=== PATIENT | female | born 1975 | race Caucasian/White ===

== ENCOUNTER 2020-03-21 06:03 | Day surgery (SDC) | payer OTHER ==
[2020-03-17 13:49] VITALS: BMI 27.6
--- NOTE | 2020-03-21 07:05 | HP ---
History & Physical Update - History History: No Change - Physical Physical: No Change - Assessment Assessment: No Change - Plan Plan: No Change
[2020-03-21] MEDS ORDERED: LIDOCAINE HCL 1%, 10 MG/ML (20ML VIAL) ONE (07:09)
[2020-03-21] MEDS ORDERED: PROPOFOL 20 ML ONE ×3 (07:19→08:02)
[2020-03-21] MEDS ORDERED: EPHEDRINE SULFATE/0.9% NACL/PF 50 MG/10 ML SYRINGE NR ONE (07:20)
[2020-03-21] MEDS ORDERED: SUCCINYLCHOLINE CHLORIDE 200 MG/10 ML SYRINGE ONE (07:20)
[2020-03-21] MEDS ORDERED: MIDAZOLAM HCL 2 MG/2 ML SINGLE DOSE VIAL ONE (07:21)
[2020-03-21] MEDS ORDERED: LIDOCAINE HCL 1%, 10 MG/ML (20ML VIAL) NR ONE (07:49)
[2020-03-21] MEDS ORDERED: ACETAMINOPHEN 325 MG TABLET (FP) PO PRN (08:19)
[2020-03-21] MEDS ORDERED: IBUPROFEN 400 MG TABLET (FP) PO PRN (08:19)
[2020-03-21 08:43] VITALS: TEMP 98.2
--- NOTE | 2020-03-21 09:05 | OPR ---
Date of Procedure: 03/21/2020 Procedure: Left elbow percutaneous tenotomy of common extensor tendon using ultrasound guidance ([id number]). Preoperative Diagnoses: Left elbow recalcitrant lateral epicondylitis. Postoperative Diagnoses: Left elbow recalcitrant lateral epicondylitis. Surgeon: Jose Antonio Allen DO Assistants: Geovani Abarca DO Anesthesia: Local anesthesia with sedation Estimated Blood Loss: Minimal Drains: None Total IV Fluids: Per anesthesia record Specimens: None Implants: None Complications: None Disposition: PACU Condition: Hemodynamically stable Indications: Yara Iyer presented to us with chronic elbow pain that failed conservative measures. Her symptoms, signs, and imaging were consistent with the above noted diagnoses. The patient failed over 6 months of conservative treatment, consisting of anti-inflammatory medication, physical therapy, bracing, and corticosteroid injection. An MRI of the elbow was used to confirm ECRB/common extensor tendon pathology. She ultimately elected to proceed with surgical intervention after discussion of the risks, benefits, alternatives. We discussed risks including but not limited to, bleeding, pain, infection, scarring, damage to neurovascular structures, blood clots, pulmonary embolus, need for additional surgery, incomplete relief of pain, and incomplete return of function. She expressed understanding and wished to proceed. She underwent preoperative medical evaluation clearance and optimization prior to the procedure. Procedure Details: The patient was identified in the preoperative area. The elbow was marked as the operative site and consent was completed and confirmed. The patient was later transferred to the operating room and placed in a supine position on the table. Sedation was induced without difficulty. The lateral elbow was prepped and draped in standard sterile fashion. A surgical time-out was performed identifying the correct patient, procedure, and site. Examination under anesthesia: Passive range of motion of the left elbow showed an arc of 0-140. This was compared to the contralateral elbow which shows a flexion-extension arc of 0-140. There was a negative pivot shift exam and no evidence of posterolateral instability. Percutaneous Tenotomy-Lateral Epicondyle: Percutaneous tenotomy of the common extensor tendon was performed using ultrasound guidance to cut and remove the pathologic tendon tissue. A sterile sleeve was placed over the ultrasound transducer. The anatomy was identified and the diseased tissue was visualized and confirmed at the common extensor tendon insertion into the lateral epicondyle. The area was prepped with an antimicrobial solution and the area was injected with 5 ml of local anesthetic using a 20 gauge needle. A skin wheal was placed and the involved tissue was anesthetized. A #11 blade was used to incise through the skin wheal about 1.5 cm distal to the site of maximum tenderness. The blade continued through the subcutaneous tissue and incised the tendon/fascia. To section the common extensor tendon the surgical instrument was introduced through the incision advancing to the diseased tendon with ultrasound guidance (pictures taken). Once the tip of the instrument confirmed the pathologic tissue, the foot pedal was depressed and the tendon was incised along its length cutting and removing the diseased tendon tissue. The instrument was removed and local fluid was expressed through the incision. The site was cleaned and a steri-strip placed. The wound was dressed with gauze and occlusive dressing with a light compressive wrap. Post-operative Details: I spoke with the family regarding the operation after surgery. Postoperative rehabilitation: Percutaneous elbow tenotomy protocol: Compressive wrap for 3-5 days. Patients are encouraged to ice regularly during the first 72 hours and begin immediate gentle passive and active range of motion. Light activity for 3 weeks, progress as tolerated. Stretching and eccentric exercise at 3 weeks. No lifting > 5 lbs for 4-6 weeks. Return to higher level activities is avoided for the first 6 to 8.
[2020-03-21 09:30] VITALS: BP 114/60; PULSE 58
== END 2020-03-21 09:57 | disposition home or self-care (01) ==
LOC: FASU 06:03
PROVIDERS: ATTEND Orthopaedic Surgery
PROC: 0L843ZZ Division of Left Upper Arm Tendon, Percutaneous Approach (ICD-10-PCS; principal; 2020-03-21 07:49)
DX: M77.11 Lateral epicondylitis, right elbow (principal)
CPT/HCPCS: 81025